=== PATIENT | female | born 1935 | race Caucasian/White ===

== ENCOUNTER 2022-10-23 08:58 | Emergency (ER) | payer OTHER ==
[~2022-10-23] VITALS: Ht 157.5 cm; Wt 59.0 kg
[2022-10-23 09:00] VITALS: BP_SYST 143
[2022-10-23 12:40] VITALS: BP_SYST 143
== END 2022-10-23 11:00 ==
LOC: SED 08:58
DX: M19.071 Primary osteoarthritis, right ankle and foot (principal); M25.571 Pain in right ankle and joints of right foot; K21.9 Gastro-esophageal reflux disease without esophagitis; Z79.899 Other long term (current) drug therapy
CPT/HCPCS: 99284

== ENCOUNTER 2023-01-21 09:11 | Emergency (ER) | payer OTHER ==
[~2023-01-21] VITALS: Ht 162.6 cm; Wt 72.6 kg
[2023-01-21 09:24] VITALS: BP_SYST 149; PULSE 80; RESP 20; TEMP 98.3; O2SAT 98
[2023-01-21] MEDS ORDERED: LORazepam 1 MG TABLET PO ONE (09:30)
[2023-01-21] MEDS ORDERED: LACOSAMIDE 100 MG TABLET PO ONE (09:30)
[2023-01-21] MEDS ORDERED: LACOSAMIDE 100 MG TABLET PO SCH ×2 (09:30→21:00)
[2023-01-21] MEDS ORDERED: LACO100T2 PO (09:39)
[2023-01-21] MEDS ORDERED: ACET325T PO (09:39)
[2023-01-21] MEDS ORDERED: BISA-79 PO (09:39)
[2023-01-21] MEDS ORDERED: DOCU-156 PO (09:39)
[2023-01-21] MEDS ORDERED: ZONI100C42 PO (09:39)
[2023-01-21] MEDS ORDERED: SERT25TA PO (09:39)
[2023-01-21] MEDS ORDERED: CLOB10TA17 PO (09:39)
[2023-01-21] MEDS ORDERED: HYDR-3917 PO (09:39)
[2023-01-21 10:03] LABS: BASOPHILS % (AUTO) 0.6 % (0.0-2.0); EOSINOPHILS # (AUTO) 0.1 K/uL (0.0-0.4); EOSINOPHILS % (AUTO) 1.2 % (0.0-4.0); HEMATOCRIT 45.4 % (36-48); HEMOGLOBIN 14.7 g/dL (12.0-16.0); LYMPHOCYTES # (AUTO) 1.5 K/uL (1.0-5.5); LYMPHOCYTES % (AUTO) 21.4 % (20.5-51.5); MEAN CORPUSCULAR HEMOGLOBIN 28 pg (27-31); MEAN CORPUSCULAR HGB CONC 32 % (32-36); MEAN CORPUSCULAR VOLUME 88 fL (79.0-98.0); MONOCYTES # (AUTO) 0.4 K/uL (0.0-1.0); MONOCYTES % (AUTO) 5.9 % (1.7-9.3); NEUTROPHILS % (AUTO) 70.9 % (40.0-70.0); PLATELET COUNT (AUTO) 187 K/uL (130-430); RED BLOOD CELL COUNT(AUTO) 5.17 MIL/uL (4.2-6.2); RED CELL DISTRIBUTION WIDTH 14.2 % (9.0-15.0); WHITE BLOOD COUNT (AUTO) 7.1 K/uL (4.8-10.8)
[2023-01-21 10:13] LABS: ANION GAP 12 (5-15); CALCIUM 9.3 mg/dL (8.4-11.0); CHLORIDE 110 mmol/L (98-107); GLUCOSE 104 mg/dL (74-106); UREA NITROGEN, BLOOD 13 mg/dL (8-21)
[2023-01-21 10:18] LABS: ALANINE AMINOTRANSFERASE 15 U/L (12-78); ALBUMIN 3.4 g/dL (3.4-4.8); ASPARTATE AMINOTRANSFERASE 12 U/L (10-37); TOTAL BILIRUBIN 0.2 mg/dL (0.0-1.0)
[2023-01-21] MEDS ORDERED: DIPHTH,PERTUSS(ACELL),TET VAC 0.5 ML VIAL (Tdap) I.M. ONE (10:45)
[2023-01-21] MEDS ORDERED: HYDROcodone/ACETAMIN 5-325 MG TAB (NORCO/ VICODIN) PO ONE (10:45)
[2023-01-21] MEDS ORDERED: BACITRACIN 1 GM OINT TP ONE (10:45)
[2023-01-21] MEDS ORDERED: IBUP-2018 PO (11:25)
[2023-01-21 17:16] VITALS: BP_SYST 149; PULSE 80; RESP 20; TEMP 98.3; O2SAT 98
== END 2023-01-21 15:45 | disposition home or self-care (01) ==
LOC: SED 09:11
DX: S00.83XA Contusion of other part of head, initial encounter (principal); R56.9 Unspecified convulsions; K21.9 Gastro-esophageal reflux disease without esophagitis; Z79.899 Other long term (current) drug therapy; W19.XXXA Unspecified fall, initial encounter; Y93.89 Activity, other specified; Y92.89 Other specified places as the place of occurrence of the external cause; Y99.8 Other external cause status
CPT/HCPCS: 36415; 70450-TC; 76376; 80053; 83605; 85025; 99284